=== PATIENT | female | born 1945 | race Caucasian/White ===

== ENCOUNTER 2016-12-24 14:02 | Inpatient (IN) | payer MEDICARE ==
[2016-12-24 14:03] VITALS: BP 157/74; PULSE 92; RESP 18; TEMP 98.8; O2SAT 99
[2016-12-24] MEDS ORDERED: IOHEXOL 350 MG/ML 10 ML VIAL (for RAD DIAG) IVCONTRAST ONE (14:03)
--- NOTE | 2016-12-24 14:09 | PD ---
Physical Exam Time Seen by Provider: 14:08 Narrative 71 y/o female here with fevers, sweats, R leg swelling, decreased urination. She notes that she had a hysterectomy on 11/27/16. Vital signs reviewed. Seen at triage desk. Awaiting bed placement. Data Data Last Documented VS Vital Signs Date Time Temp Pulse Resp B/P (MAP) Pulse Ox O2 Delivery O2 Flow Rate FiO2 12/24/16 14:03 98.8 92 18 157/74 (101) 99 Room Air [facility] Medical Record Reviewed: Yes Supervised Visit with JUNITO: Zackery Barba Dec 24, 2016 14:09
[2016-12-24 15:50] VITALS: RESP 17; O2SAT 99
--- NOTE | 2016-12-24 15:51 | PD ---
HPI Chief Complaint: Fever Time Seen by Provider: 15:31 Travel History International Travel<30 days: No Contact w/Intl Traveler<30days: No Traveled to known affect area: No History of Present Illness HPI The patient is a 71-year-old female who presents to the emergency department for fever. The patient is status post laparoscopic hysterectomy that was performed at [facility] on November 27, 2016. The patient developed a fever last , states it is been as high as 110.2 at home, states it was 100.7 this morning. The patient called her physician last week before leaving [place] who advised her to take Tylenol and/or Motrin for fever. The patient then traveled to [place], however, continues to have fever. She also complains of right lower extremity swelling and edema with pain in the posterior aspect of the calf. The patient also complains of suprapubic discomfort and pain with decreased urination. The patient denies any headache, cough, chest pain, shortness breath, nausea, vomiting, or diarrhea. The patient's symptoms are moderate, there are no current alleviating or exacerbating factors. COUNTS INCLUDE 234 BEDS AT THE [facility] Past Medical History Medical History: Denies Significant Hx Past Surgical History Narrative Surgical Hysterectomy, appendectomy Social History Alcohol Use: No Tobacco Use: No Substance Use: No Allergies-Medications (Allergen,Severity, Reaction): Coded Allergies: celecoxib (Verified Allergy, Severe, Facial swelling/hives, 12/24/16) Per patient directly - has taken NSAIDS previously with no problem meperidine (Verified Allergy, Severe, hives, 12/24/16) latex (Verified Allergy, Unknown, rash, 12/24/16) nickel (Unverified Adverse Reaction, Unknown, "FEVER", 12/24/16) "FEVER" per patient oxycodone (Verified Adverse Reaction, Unknown, PATIENT PREFERENCE - NO OXYCONTIN/OXYCODONE, 12/24/16) PERSONAL PREFERENCE - NOT ALLERGIC Reported Meds & Prescriptions Reported Meds & Active Scripts Active No Active Prescriptions or Reported Medications Review of Systems Except as stated in HPI: all other systems reviewed are Neg General / Constitutional: Positive: Fever HENT: No: Headaches, Lightheadedness Cardiovascular: No: Chest Pain or Discomfort Respiratory: No: Cough, Shortness of Breath Gastrointestinal: Positive: Abdominal Pain, No: Nausea, Vomiting Genitourinary: Positive: Decreased Urinary Output, Pelvic Pain, No: Dysuria, Discharge, Vaginal Bleeding Musculoskeletal: Positive: Edema, Pain Skin: No Rash Physical Exam Narrative GENERAL: Awake, alert, pleasant 71-year-old female who appears her stated age and is in no acute respiratory distress. SKIN: Focused skin assessment warm/dry. HEAD: Atraumatic. Normocephalic. EYES: Pupils equal and round. No scleral icterus. No injection or drainage. ENT: No nasal bleeding or discharge. Mucous membranes pink and moist. No erythema or exudate noted. NECK: Trachea midline. No JVD. CARDIOVASCULAR: Regular rate and rhythm. No murmur appreciated. RESPIRATORY: No accessory muscle use. Clear to auscultation. Breath sounds equal bilaterally. GASTROINTESTINAL: Abdomen soft, mild suprapubic tenderness. Small laparoscopic scars without any visible dehiscence or drainage. Pelvic: The exam was performed in the presence of a female nurse. External examination reveals no rashes or lesions. Speculum examination reveals a vaginal vault, no cervix identified. No visible drainage or obvious dehiscence. MUSCULOSKELETAL: Right lower extremity does appear larger than the left lower extremity upon visual examination. Mild tenderness of the posterior aspect of the right calf. NEUROLOGICAL: Awake and alert. No obvious cranial nerve deficits. Motor grossly within normal limits. Normal speech. PSYCHIATRIC: Appropriate mood and affect; insight and judgment normal. Data Data Last Documented VS Vital Signs Date Time Temp Pulse Resp B/P (MAP) Pulse Ox O2 Delivery O2 Flow Rate FiO2 12/24/16 18:18 100.2 96 17 156/75 (102) 99 Room Air Orders Orders Complete Blood Count With Diff (12/24/16 15:39) Comprehensive Metabolic Panel (12/24/16 15:39) Lactic Acid Sepsis Protocol (12/24/16 15:39) Urinalysis - C+S If Indicated (12/24/16 15:39) Influenzae A/B Antigen (12/24/16 15:39) Blood Culture (12/24/16 15:39) Chest, Single Ap (12/24/16 15:39) Blood Glucose (12/24/16 15:39) Ecg Monitoring (12/24/16 15:39) Iv Access Insert/Monitor (12/24/16 15:39) Oximetry (12/24/16 15:39) Oxygen Administration (12/24/16 15:39) Us Leg Venous Doppler (12/24/16 ) Ct Abd/Pel W Iv Contrast(Rout) (12/24/16 ) Urine Culture (12/24/16 16:00) Ciprofloxacin 400 Mg Premix (Cipro 400 M (12/24/16 17:00) Iohexol 350 Inj (Omnipaque 350 Inj) (12/24/16 14:03) Acetaminophen (Tylenol) (12/24/16 18:30) Admit Order (Ed Use Only) (12/24/16 18:28) Labs Laboratory Tests Test 12/24/16 16:00 White Blood Count 15.8 TH/MM3 Red Blood Count 3.79 MIL/MM3 Hemoglobin 10.6 GM/DL Hematocrit 32.9 % Mean Corpuscular Volume 86.8 FL Mean Corpuscular Hemoglobin 27.9 PG Mean Corpuscular Hemoglobin Concent 32.1 % Red Cell Distribution Width 13.1 % Platelet Count 342 TH/MM3 Mean Platelet Volume 8.0 FL Neutrophils (%) (Auto) 75.6 % Lymphocytes (%) (Auto) 11.7 % Monocytes (%) (Auto) 10.8 % Eosinophils (%) (Auto) 1.3 % Basophils (%) (Auto) 0.6 % Neutrophils # (Auto) 11.9 TH/MM3 Lymphocytes # (Auto) 1.9 TH/MM3 Monocytes # (Auto) 1.7 TH/MM3 Eosinophils # (Auto) 0.2 TH/MM3 Basophils # (Auto) 0.1 TH/MM3 CBC Comment DIFF FINAL Differential Comment Urine Color YELLOW Urine Turbidity CLEAR Urine pH 5.5 Urine Specific [place] 1.022 Urine Protein 30 mg/dL Urine Glucose (UA) NEG mg/dL Urine Ketones NEG mg/dL Urine Occult Blood SMALL Urine Nitrite NEG Urine Bilirubin NEG Urine Urobilinogen LESS THAN 2.0 MG/DL Urine Leukocyte Esterase MOD Urine RBC 4 /hpf Urine WBC 14 /hpf Urine Squamous Epithelial Cells 1 /hpf Urine Bacteria OCC /hpf Urine Mucus FEW /lpf Microscopic Urinalysis Comment CATH-CULTURE IND Blood Urea Nitrogen 11 MG/DL Creatinine 0.66 MG/DL Random Glucose 106 MG/DL Total Protein 8.0 GM/DL Albumin 3.3 GM/DL Calcium Level 9.5 MG/DL Alkaline Phosphatase 127 U/L Aspartate Amino Transf (AST/SGOT) 55 U/L Alanine Aminotransferase (ALT/SGPT) 72 U/L Total Bilirubin 0.8 MG/DL Sodium Level 139 MEQ/L Potassium Level 3.5 MEQ/L Chloride Level 105 MEQ/L Carbon Dioxide Level 27.8 MEQ/L Anion Gap 6 MEQ/L Estimat Glomerular Filtration Rate 89 ML/MIN Lactic Acid Level 1.1 mmol/L [facility] Medical Decision Making Medical Screen Exam Complete: Yes Emergency Medical Condition: Yes Medical Record Reviewed: Yes Interpretation(s) Last Impressions Chest X-Ray 12/24/16 1539 Signed Impressions: Service Date/Time: Saturday, December 24, 2016 15:36 - CONCLUSION: No acute disease. Carson Elliott MD FACR Lower Extremity Ultrasound 12/24/16 0000 Signed Impressions: Service Date/Time: Saturday, December 24, 2016 15:54 - CONCLUSION: 1. No sonographic evidence for right lower extremity DVT. 2. Right inguinal adenopathy, likely reactive. Maninder Barrios MD Laboratory Tests Test 12/24/16 16:00 White Blood Count 15.8 TH/MM3 Red Blood Count 3.79 MIL/MM3 Hemoglobin 10.6 GM/DL Hematocrit 32.9 % Mean Corpuscular Volume 86.8 FL Mean Corpuscular Hemoglobin 27.9 PG Mean Corpuscular Hemoglobin Concent 32.1 % Red Cell Distribution Width 13.1 % Platelet Count 342 TH/MM3 Mean Platelet Volume 8.0 FL Neutrophils (%) (Auto) 75.6 % Lymphocytes (%) (Auto) 11.7 % Monocytes (%) (Auto) 10.8 % Eosinophils (%) (Auto) 1.3 % Basophils (%) (Auto) 0.6 % Neutrophils # (Auto) 11.9 TH/MM3 Lymphocytes # (Auto) 1.9 TH/MM3 Monocytes # (Auto) 1.7 TH/MM3 Eosinophils # (Auto) 0.2 TH/MM3 Basophils # (Auto) 0.1 TH/MM3 CBC Comment DIFF FINAL Differential Comment Urine Color YELLOW Urine Turbidity CLEAR Urine pH 5.5 Urine Specific [place] 1.022 Urine Protein 30 mg/dL Urine Glucose (UA) NEG mg/dL Urine Ketones NEG mg/dL Urine Occult Blood SMALL Urine Nitrite NEG Urine Bilirubin NEG Urine Urobilinogen LESS THAN 2.0 MG/DL Urine Leukocyte Esterase MOD Urine RBC 4 /hpf Urine WBC 14 /hpf Urine Squamous Epithelial Cells 1 /hpf Urine Bacteria OCC /hpf Urine Mucus FEW /lpf Microscopic Urinalysis Comment CATH-CULTURE IND Blood Urea Nitrogen 11 MG/DL Creatinine 0.66 MG/DL Random Glucose 106 MG/DL Total Protein 8.0 GM/DL Albumin 3.3 GM/DL Calcium Level 9.5 MG/DL Alkaline Phosphatase 127 U/L Aspartate Amino Transf (AST/SGOT) 55 U/L Alanine Aminotransferase (ALT/SGPT) 72 U/L Total Bilirubin 0.8 MG/DL Sodium Level 139 MEQ/L Potassium Level 3.5 MEQ/L Chloride Level 105 MEQ/L Carbon Dioxide Level 27.8 MEQ/L Anion Gap 6 MEQ/L Estimat Glomerular Filtration Rate 89 ML/MIN Lactic Acid Level 1.1 mmol/L Date/Time Source Procedure Growth Status 12/24/16 16:01 Blood Peripheral Aerobic Blood Culture Pending Received 12/24/16 16:01 Blood Peripheral Anaerobic Blood Culture Pending Received 12/24/16 15:50 Blood Peripheral Aerobic Blood Culture Pending Received 12/24/16 15:50 Blood Peripheral Anaerobic Blood Culture Pending Received 12/24/16 16:00 Nasal Aspirate Influenza Types A,B Antigen (BRUEC) - Final NEGATIVE FOR FLU A AND B ANTIGEN.... Complete 12/24/16 16:00 Urine Catheterized Urine Urine Culture Pending Received Differential Diagnosis Differential diagnosis includes postoperative abscess, DVT, UTI, surgical dehiscence, pneumonia, atelectasis, dehydration, influenza, viral syndrome. Narrative Course IV was established, labs are drawn and sent, and the patient was placed on cardiac telemetry monitoring and continuous pulse oximetry monitoring. A pelvic exam was performed in the presence of a female nurse to evaluate for possible surgical dehiscence. UA was sent to lab. Ultrasound of the right lower extremity was ordered to evaluate for possible DVT. CT of the abdomen and pelvis with IV contrast was ordered to evaluate for postoperative abscess. Chest x-ray was obtained. Chest x-ray was negative. Vaginal examination is unremarkable. The patient did have a UA with WBCs, was administered Cipro 400 mg intravenously. The patient was signed out to the oncoming physician with CT of the abdomen and pelvis pending for possible postoperative abscess. Sepsis Criteria SIRS Criteria (2 or more): Heart rate over 90, WBC > 56733, < 4000 or > 10% bands Sepsis Criteria (SIRS+source): Infect source susp/known Criteria Outcome: Meets sepsis criteria Diagnosis Primary Impression: UTI (urinary tract infection) Qualified Codes: N30.01 - Acute cystitis with hematuria Additional Impressions: Pelvic pain in female Postoperative wound abscess Qualified Codes: T81.4XXA - Infection following a procedure, initial encounter Sepsis Qualified Codes: A41.9 - Sepsis, unspecified organism Scripts No Active Prescriptions or Reported Meds Condition: Blaise Albright MD Dec 24, 2016 15:51
--- NOTE | 2016-12-24 16:11 | RADRPT ---
EXAM DATE/TIME: 12/24/2016 15:36 [facility] COMPARISON: No previous studies available for comparison. INDICATIONS : Fever since 11-27-16 MEDICAL HISTORY : None. SURGICAL HISTORY : Hysterectomy. D&C ENCOUNTER: Initial ACUITY: 3 weeks PAIN SCORE: 0/10 LOCATION: Bilateral chest FINDINGS: A single view of the chest demonstrates the lungs to be symmetrically aerated without evidence of mas s, infiltrate or effusion. The cardiomediastinal contours are unremarkable. Osseous structures are intact. CONCLUSION: No acute disease. Carson Elliott MD FACR on December 24, 2016 at 16:09 Board Certified Radiologist. This report was verified electronically.
[2016-12-24 16:23] VITALS: BP 171/82; PULSE 88; RESP 16; TEMP 98.6; O2SAT 99
[2016-12-24 16:27] LABS: BACTERIA, URINE OCC /hpf; BLOOD, URINE SMALL (NEG); GLUCOSE,URINE NEG (NEG); KETONE, URINE NEG (NEG); MUCUS URINE FEW /lpf (OCC); NITRITE,URINE NEG (NEG); PH, URINE 5.5 (5.0-8.5); SQUAMOUS EPITHELIAL CELL URINE 1 /hpf (0-5); URINE COLOR YELLOW (YELLW/STRAW)
--- NOTE | 2016-12-24 16:37 | RADRPT ---
EXAM DATE/TIME: 12/24/2016 15:54 [facility] COMPARISON: No previous studies available for comparison. INDICATIONS : Right leg swelling. MEDICAL HISTORY : None. Right leg swelling. SURGICAL HISTORY : Hysterectomy. Appendectomy. ENCOUNTER: Initial ACUITY: 1 day PAIN SCORE: 0/10 LOCATION: Right leg. TECHNIQUE: Venous ultrasound of the leg was performed from the inguinal ligament to the proximal calf. Real-cole e, color Doppler and spectral tracing, compression and augmentation techniques were used. FINDINGS: There is normal compressibility of the deep venous system from the inguinal region to the proximal ca lf. No echogenic clot is seen in the lumen of the common femoral, femoral, popliteal, and posterior tibial veins. There is a normal response of the venous system to proximal and distal augmentation an d respiration. Incidental note is made of multiple enlarged right inguinal lymph nodes which demonstrate normal cent ral fatty hilum. Largest measure 3.4 x 2.1 x 1.3 cm. CONCLUSION: 1. No sonographic evidence for right lower extremity DVT. 2. Right inguinal adenopathy, likely reactive. Maninder Barrios MD on December 24, 2016 at 16:34 Board Certified Radiologist. This report was verified electronically.
[2016-12-24 16:40] LABS: AUTOMATED NEUTROPHIL # 11.9 TH/MM3 (1.8-7.7); BASOPHIL # 0.1 TH/MM3 (0-0.2); BASOPHIL % 0.6 % (0.0-2.0); EOSINOPHIL # 0.2 TH/MM3 (0-0.4); EOSINOPHIL % 1.3 % (0.0-4.0); HEMATOCRIT 32.9 % (35.0-46.0); HEMO FLAGS DIFF FINAL; LYMPH % 11.7 % (9.0-44.0); LYMPHOCYTE # 1.9 TH/MM3 (1.0-4.8); MEAN CELL VOLUME 86.8 FL (80.0-100.0); MEAN CORPUSCULAR HEMOGLOBIN 27.9 PG (27.0-34.0); MEAN CORPUSCULAR HGB CONC 32.1 % (32.0-36.0); MONO % 10.8 % (0.0-8.0); NEUT % 75.6 % (16.0-70.0); PLATELET COUNT 342 TH/MM3 (150-450); RED BLOOD COUNT 3.79 MIL/MM3 (4.00-5.30); RED CELL DISTRIBUTION WIDTH 13.1 % (11.6-17.2); WHITE BLOOD COUNT 15.8 TH/MM3 (4.0-11.0)
[2016-12-24 16:44] LABS: COMMENT (UR) CATH-CULTURE IND; CULTURE IF INDICATED CATH CULTURE IND
[2016-12-24 16:46] LABS: ANION GAP 6 MEQ/L (5-15); AST (GOT) 55 U/L (15-37); BICARBONATE 27.8 MEQ/L (21.0-32.0); BLOOD UREA NITROGEN 11 MG/DL (7-18); CHLORIDE 105 MEQ/L (98-107); GLOMERULAR FILTRATION RATE 89 ML/MIN (>89); POTASSIUM 3.5 MEQ/L (3.5-5.1); SODIUM (NA) 139 MEQ/L (136-145)
[2016-12-24 16:47] LABS: ALT (GPT) 72 U/L (10-53)
[2016-12-24 16:49] LABS: ALKALINE PHOSPHATASE 127 U/L (45-117); TOTAL BILIRUBIN ADULT 0.8 MG/DL (0.2-1.0)
[2016-12-24] MEDS ORDERED: CIPROFLOXACIN 400 MG PREMIX 200 ML IV ONE (17:00)
--- NOTE | 2016-12-24 18:15 | RADRPT ---
EXAM DATE/TIME: 12/24/2016 17:41 [facility] COMPARISON: No previous studies available for comparison. INDICATIONS : Low abdomen pain with fever. S/P hysterectomy 4 weeks ago. IV CONTRAST: 95 cc Omnipaque 350 (iohexol) IV ORAL CONTRAST: No oral contrast ingested. RADIATION DOSE: 19.53 CTDIvol (mGy) ; Patient body habitus MEDICAL HISTORY : None SURGICAL HISTORY : Hysterectomy. ENCOUNTER: Initial ACUITY: 2 weeks PAIN SCALE: 7/10 LOCATION: Right lower pelvis TECHNIQUE: Volumetric scanning of the abdomen and pelvis was performed. Using automated exposure control and ad justment of the mA and/or kV according to patient size, radiation dose was kept as low as reasonably achievable to obtain optimal diagnostic quality images. DICOM format image data is available electro nically for review and comparison. FINDINGS: The lung base is are clear. Small hiatal hernia is evident with some bowel wall thickening. The liver, spleen, pancreas and gallbladder are unremarkable. The adrenal glands appear normal. The right kidney is unremarkable. Renal cysts as seen on the left kidney. There are inflammatory changes in the right lower quadrant involving the ileum. There is an enlarged fluid collection in the obturator region measuring 6 cm. There is bladder wall thickening along the right lateral side of the bladder. There is no free air. Review of bone windows reveals only degenerative changes. CONCLUSION: 1. Inflammatory changes right lower quadrant expected location of the appendix. These inflammatory c hanges involve the terminal ileum as well. 2. Rasonably well-defined fluid collection is seen in the right obturator region does show some perip heral wall enhancement. 3. Jen is bladder wall thickening right lateral bladder wall wall. Carson Elliott MD FACR on December 24, 2016 at 17:54 Board Certified Radiologist. This report was verified electronically.
[2016-12-24 18:18] VITALS: BP 156/75; PULSE 96; RESP 17; TEMP 100.2; O2SAT 99
[2016-12-24] MEDS ORDERED: ACETAMINOPHEN 325 MG TAB PO ONE (18:30)
--- NOTE | 2016-12-24 18:32 | PD ---
Data Data Last Documented VS Vital Signs Date Time Temp Pulse Resp B/P (MAP) Pulse Ox O2 Delivery O2 Flow Rate FiO2 12/24/16 18:18 100.2 96 17 156/75 (102) 99 Room Air Orders Orders Complete Blood Count With Diff (12/24/16 15:39) Comprehensive Metabolic Panel (12/24/16 15:39) Lactic Acid Sepsis Protocol (12/24/16 15:39) Urinalysis - C+S If Indicated (12/24/16 15:39) Influenzae A/B Antigen (12/24/16 15:39) Blood Culture (12/24/16 15:39) Chest, Single Ap (12/24/16 15:39) Blood Glucose (12/24/16 15:39) Ecg Monitoring (12/24/16 15:39) Iv Access Insert/Monitor (12/24/16 15:39) Oximetry (12/24/16 15:39) Oxygen Administration (12/24/16 15:39) Us Leg Venous Doppler (12/24/16 ) Ct Abd/Pel W Iv Contrast(Rout) (12/24/16 ) Urine Culture (12/24/16 16:00) Ciprofloxacin 400 Mg Premix (Cipro 400 M (12/24/16 17:00) Iohexol 350 Inj (Omnipaque 350 Inj) (12/24/16 14:03) Acetaminophen (Tylenol) (12/24/16 18:30) Admit Order (Ed Use Only) (12/24/16 18:28) Labs Laboratory Tests Test 12/24/16 16:00 White Blood Count 15.8 TH/MM3 Red Blood Count 3.79 MIL/MM3 Hemoglobin 10.6 GM/DL Hematocrit 32.9 % Mean Corpuscular Volume 86.8 FL Mean Corpuscular Hemoglobin 27.9 PG Mean Corpuscular Hemoglobin Concent 32.1 % Red Cell Distribution Width 13.1 % Platelet Count 342 TH/MM3 Mean Platelet Volume 8.0 FL Neutrophils (%) (Auto) 75.6 % Lymphocytes (%) (Auto) 11.7 % Monocytes (%) (Auto) 10.8 % Eosinophils (%) (Auto) 1.3 % Basophils (%) (Auto) 0.6 % Neutrophils # (Auto) 11.9 TH/MM3 Lymphocytes # (Auto) 1.9 TH/MM3 Monocytes # (Auto) 1.7 TH/MM3 Eosinophils # (Auto) 0.2 TH/MM3 Basophils # (Auto) 0.1 TH/MM3 CBC Comment DIFF FINAL Differential Comment Urine Color YELLOW Urine Turbidity CLEAR Urine pH 5.5 Urine Specific [place] 1.022 Urine Protein 30 mg/dL Urine Glucose (UA) NEG mg/dL Urine Ketones NEG mg/dL Urine Occult Blood SMALL Urine Nitrite NEG Urine Bilirubin NEG Urine Urobilinogen LESS THAN 2.0 MG/DL Urine Leukocyte Esterase MOD Urine RBC 4 /hpf Urine WBC 14 /hpf Urine Squamous Epithelial Cells 1 /hpf Urine Bacteria OCC /hpf Urine Mucus FEW /lpf Microscopic Urinalysis Comment CATH-CULTURE IND Blood Urea Nitrogen 11 MG/DL Creatinine 0.66 MG/DL Random Glucose 106 MG/DL Total Protein 8.0 GM/DL Albumin 3.3 GM/DL Calcium Level 9.5 MG/DL Alkaline Phosphatase 127 U/L Aspartate Amino Transf (AST/SGOT) 55 U/L Alanine Aminotransferase (ALT/SGPT) 72 U/L Total Bilirubin 0.8 MG/DL Sodium Level 139 MEQ/L Potassium Level 3.5 MEQ/L Chloride Level 105 MEQ/L Carbon Dioxide Level 27.8 MEQ/L Anion Gap 6 MEQ/L Estimat Glomerular Filtration Rate 89 ML/MIN Lactic Acid Level 1.1 mmol/L MDM Supervised Visit with JUNITO: No Narrative Course The patient was initially evaluated by the previous provider and signed out to me at the beginning of my shift pending CT abdomen pelvis and disposition. See his note for further details. Briefly this is a 71-year-old female who had a hysterectomy 2 weeks ago at [facility], here for evaluation of abdominal pain and fever. For the last 2 weeks patient has been experiencing right lower abdominal pain as well as fevers. History of appendectomy. CBC is remarkable for WBC 15.8 with 75.6% neutrophils. UA shows small occult blood, moderate leukocyte esterase, 14 wbc's, occasional bacteria. The patient was given a dose of IV Cipro by the previous provider. CT abdomen pelvis: CONCLUSION: 1. Inflammatory changes right lower quadrant expected location of the appendix. These inflammatory changes involve the terminal ileum as well. 2. Rasonably well-defined fluid collection is seen in the right obturator region does show some peripheral wall enhancement. 3. Jen is bladder wall thickening right lateral bladder wall wall. On exam the patient does have right lower quadrant and suprapubic tenderness. There are no peritoneal signs. She was made aware of all findings. Case discussed with OB hospitalist Dr. Patricio who will admit the patient to his service. He will determine which IV antibiotics he will administer. Diagnosis Primary Impression: Sepsis Qualified Codes: A41.9 - Sepsis, unspecified organism Additional Impression: Postoperative wound abscess Qualified Codes: T81.4XXA - Infection following a procedure, initial encounter Admitting Information Admitting Physician Requests: Admit Scripts No Active Prescriptions or Reported Meds Condition: Matt Murillo MD Dec 24, 2016 18:32
[2016-12-24] MEDS ORDERED: SODIUM CHLOR 0.9% 1000 ML INJ 1,000 ML IV ONE (19:15)
[2016-12-24] MEDS ORDERED: ALUMINUM/MAGNESIUM/SIMETH 30 ML CUP PO PRN (19:45)
[2016-12-24] MEDS ORDERED: SODIUM CHLORIDE 0.9% FLUSH 5 ML FLUSH IV FLUSH PRN (19:45)
[2016-12-24] MEDS ORDERED: ACETAMINOPHEN/HYDROcodone 325 MG/5 MG TAB PO PRN (19:45)
[2016-12-24] MEDS ORDERED: MORPHINE SULFATE 4 MG/ML INJ IV PUSH PRN (19:45)
[2016-12-24] MEDS ORDERED: ONDANSETRON HCL 4 MG/2 ML VIAL IV PUSH PRN (19:45)
[2016-12-24] MEDS ORDERED: ACETAMINOPHEN 325 MG TAB PO PRN (19:45)
[2016-12-24] MEDS ORDERED: AMPICILLIN-SULBACTAM INJ 3 GM VIAL IM SCH (20:00)
[2016-12-24] MEDS ORDERED: ZOLPIDEM TARTRATE 10 MG TAB PO PRN (20:00)
[2016-12-24] MEDS ORDERED: MAGNESIUM HYDROXIDE SUSP 30 ML CUP PO PRN (20:00)
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
[2016-12-24] MEDS: SODIUM CHLORIDE 0.9% FLUSH 5 ML FLUSH IV FLUSH SCH (21:00)
[2016-12-24 21:15] VITALS: BP 136/69; PULSE 91; RESP 16; TEMP 97.9; O2SAT 94
[2016-12-24] MEDS: metroNIDAZOLE 500 MG INJ 100 ML IV SCH (21:34)
[2016-12-24] MEDS: ENOXAPARIN SODIUM 40 MG/0.4 ML SYRINGE SQ SCH (21:36)
[2016-12-24] MEDS: SODIUM CHLOR 0.45% 1000 ML INJ 1,000 ML IV SCH (21:38)
[2016-12-24] MEDS: AMPICILLIN-SULBACTAM INJ 3 GM in SODIUM CHLORIDE 0.9% INJ 100 ML IV SCH (22:48)
[2016-12-25] VITALS (7 sets, daily range): BP systolic 112–132; BP diastolic 52–70; PULSE 75–90; RESP 16–20; TEMP 97.6–100; O2SAT 94–98
[2016-12-25] MEDS: IBUPROFEN 600 MG TAB PO PRN ×2 (01:46→14:20)
[2016-12-25] MEDS: AMPICILLIN-SULBACTAM INJ 3 GM in SODIUM CHLORIDE 0.9% INJ 100 ML IV SCH ×4 (03:39→23:31)
[2016-12-25] MEDS: metroNIDAZOLE 500 MG INJ 100 ML IV SCH ×3 (04:12→20:28)
[2016-12-25 07:40] LABS: AUTOMATED NEUTROPHIL # 9.1 TH/MM3 (1.8-7.7); BASOPHIL % 0.3 % (0.0-2.0); EOSINOPHIL # 0.2 TH/MM3 (0-0.4); EOSINOPHIL % 1.7 % (0.0-4.0); HEMATOCRIT 27.4 % (35.0-46.0); HEMO FLAGS DIFF FINAL; LYMPH % 9.3 % (9.0-44.0); LYMPHOCYTE # 1.2 TH/MM3 (1.0-4.8); MEAN CELL VOLUME 86.8 FL (80.0-100.0); MEAN CORPUSCULAR HEMOGLOBIN 28.1 PG (27.0-34.0); MEAN CORPUSCULAR HGB CONC 32.3 % (32.0-36.0); MONO % 15.2 % (0.0-8.0); NEUT % 73.5 % (16.0-70.0); PLATELET COUNT 262 TH/MM3 (150-450); RED BLOOD COUNT 3.16 MIL/MM3 (4.00-5.30); RED CELL DISTRIBUTION WIDTH 13.3 % (11.6-17.2); WHITE BLOOD COUNT 12.4 TH/MM3 (4.0-11.0)
[2016-12-25 08:14] LABS: FREE T4 1.19 NG/DL (0.76-1.46)
[2016-12-25] MEDS: SODIUM CHLORIDE 0.9% FLUSH 5 ML FLUSH IV FLUSH SCH ×2 (09:00→21:00)
--- NOTE | 2016-12-25 09:00 | HHI.PR ---
Subjective Remarks HD 2 AFVSS Tmax -100.2 on Unasyn & flagyl doing well still having pain, and nite sweats exam unchanged Objective Vital Signs Date Time Temp Pulse Resp B/P (MAP) Pulse Ox O2 Delivery O2 Flow Rate FiO2 12/25/16 08:45 97.9 75 17 112/53 (72) 96 12/25/16 05:12 97.7 86 16 132/70 (90) 94 12/25/16 01:45 100.0 12/25/16 00:47 97.7 90 16 128/66 (86) 94 12/24/16 21:15 97.9 91 16 136/69 (91) 94 12/24/16 20:37 12/24/16 18:18 100.2 96 17 156/75 (102) 99 Room Air 12/24/16 16:23 98.6 88 16 171/82 (111) 99 Room Air 12/24/16 15:50 99 Room Air 12/24/16 15:50 17 99 Room Air 12/24/16 15:47 17 89 99 Room Air 12/24/16 14:03 98.8 92 18 157/74 (101) 99 Room Air I/O 12/24/16 12/24/16 12/24/16 12/25/16 12/25/16 12/25/16 07:00 15:00 23:00 07:00 15:00 23:00 Intake Total 1300 ml 900 ml Balance 1300 ml 900 ml Intake IV Total 1300 ml 900 ml Result Diagram: 12/25/16 0700 12/24/16 1600 Assessment and Plan Assessment and Plan post hyst pelvic abscess on IVATB , needs to be AFeb 24 hrs minimal before dicharge Donte Patricio II, MD Dec 25, 2016 09:00
[2016-12-25] MEDS: KETOROLAC TROMETHAMINE 30 MG/ML (IVP) VIAL IV PUSH PRN ×3 (11:52→23:26)
[2016-12-25] MEDS ORDERED: IBUPROFEN 600 MG TAB PO PRN (16:15)
[2016-12-25] MEDS: SODIUM CHLOR 0.45% 1000 ML INJ 1,000 ML IV SCH (19:40)
[2016-12-25] MEDS: ENOXAPARIN SODIUM 40 MG/0.4 ML SYRINGE SQ SCH (20:28)
[2016-12-26 01:22] VITALS: BP 129/64; PULSE 83; RESP 19; TEMP 98.2; O2SAT 100
[2016-12-26] MEDS: metroNIDAZOLE 500 MG INJ 100 ML IV SCH ×3 (04:19→20:17)
[2016-12-26 06:23] VITALS: BP 143/62; PULSE 78; RESP 17; TEMP 98.4; O2SAT 97
[2016-12-26] MEDS: KETOROLAC TROMETHAMINE 30 MG/ML (IVP) VIAL IV PUSH PRN ×3 (06:38→20:17)
[2016-12-26] MEDS: AMPICILLIN-SULBACTAM INJ 3 GM in SODIUM CHLORIDE 0.9% INJ 100 ML IV SCH ×4 (06:40→23:02)
[2016-12-26] MEDS: SODIUM CHLORIDE 0.9% FLUSH 5 ML FLUSH IV FLUSH SCH ×2 (08:25→20:18)
[2016-12-26] MEDS: SODIUM CHLOR 0.45% 1000 ML INJ 1,000 ML IV SCH ×3 (08:25→23:01)
[2016-12-26 10:12] LABS: AUTOMATED NEUTROPHIL # 6.8 TH/MM3 (1.8-7.7); BASOPHIL % 0.5 % (0.0-2.0); EOSINOPHIL # 0.4 TH/MM3 (0-0.4); EOSINOPHIL % 4.9 % (0.0-4.0); HEMATOCRIT 27.5 % (35.0-46.0); HEMO FLAGS DIFF FINAL; LYMPH % 9.7 % (9.0-44.0); LYMPHOCYTE # 0.9 TH/MM3 (1.0-4.8); MEAN CELL VOLUME 87.3 FL (80.0-100.0); MEAN CORPUSCULAR HEMOGLOBIN 28.4 PG (27.0-34.0); MEAN CORPUSCULAR HGB CONC 32.6 % (32.0-36.0); MONO % 11.1 % (0.0-8.0); NEUT % 73.8 % (16.0-70.0); PLATELET COUNT 281 TH/MM3 (150-450); RED BLOOD COUNT 3.15 MIL/MM3 (4.00-5.30); RED CELL DISTRIBUTION WIDTH 13.7 % (11.6-17.2); WHITE BLOOD COUNT 9.2 TH/MM3 (4.0-11.0)
[2016-12-26 12:00] VITALS: BP 142/70; PULSE 81; RESP 16; TEMP 97.4; O2SAT 99
--- NOTE | 2016-12-26 12:35 | HHI.PR ---
Subjective Remarks Pt seen and examined this morning. States her pain is overall improved, but still feels it. Denies any fever/chills overnight. No nausea/vomiting. No chest pain, SOB, leg pain. Objective Vital Signs Date Time Temp Pulse Resp B/P (MAP) Pulse Ox O2 Delivery O2 Flow Rate FiO2 12/26/16 06:23 98.4 78 17 143/62 (89) 97 12/26/16 01:22 98.2 83 19 129/64 (85) 100 12/25/16 20:00 97.7 76 20 113/58 (76) 98 12/25/16 16:22 97.6 87 17 120/64 (82) 96 I/O 12/25/16 12/25/16 12/25/16 12/26/16 12/26/16 12/26/16 07:00 15:00 23:00 07:00 15:00 23:00 Intake Total 900 ml 240 ml Balance 900 ml 240 ml Intake Oral 240 ml IV Total 900 ml # Voids 3 Result Diagram: 12/26/16 0950 12/24/16 1600 Objective Remarks GENERAL: NAD CARDIOVASCULAR: Regular rate and rhythm. RESPIRATORY: No accessory muscle use. Clear to auscultation. Breath sounds equal bilaterally. GASTROINTESTINAL: Abdomen soft, tender to palpation in lower abdominal area. BS+ MUSCULOSKELETAL: Extremities without clubbing, cyanosis, or edema. No obvious deformities. PSYCHIATRIC: Appropriate mood and affect; insight and judgment normal. Assessment and Plan Assessment and Plan post hysterectomy pelvic abscess on IVATB -Pt doing well on antibiotics -Pt afebrile for >24h -If pt remains afebrile tomorrow morning >48h, consider discharge Otoniel Lawrence MD, R2 Dec 26, 2016 12:35
[2016-12-26] MEDS ORDERED: PILL SPLITTER OTHER PRN (14:00)
[2016-12-26] MEDS: LORATADINE 10 MG TAB PO SCH (15:34)
[2016-12-26 16:00] VITALS: BP 137/72; PULSE 85; RESP 18; TEMP 99.7; O2SAT 99
[2016-12-26] MEDS: LACTOBACILLUS ACIDOPHILUS TAB PO SCH (17:41)
[2016-12-26 20:00] VITALS: BP 126/58; PULSE 93; RESP 18; TEMP 99.9; O2SAT 95
[2016-12-26] MEDS: ENOXAPARIN SODIUM 40 MG/0.4 ML SYRINGE SQ SCH (20:18)
[2016-12-27] VITALS: BP 133/62; PULSE 93; RESP 20; TEMP 99.9; O2SAT 97
[2016-12-27 01:13] VITALS: TEMP 98.9
[2016-12-27] MEDS: SODIUM CHLOR 0.45% 1000 ML INJ 1,000 ML IV SCH ×2 (03:45→11:45)
[2016-12-27] MEDS: metroNIDAZOLE 500 MG INJ 100 ML IV SCH ×2 (03:46→12:00)
[2016-12-27] MEDS: LORATADINE 10 MG TAB PO SCH ×2 (03:46→14:05)
[2016-12-27 04:00] VITALS: BP 115/57; PULSE 89; RESP 20; TEMP 98.8; O2SAT 96
[2016-12-27] MEDS: AMPICILLIN-SULBACTAM INJ 3 GM in SODIUM CHLORIDE 0.9% INJ 100 ML IV SCH ×3 (05:28→15:45)
[2016-12-27 07:48] LABS: AUTOMATED NEUTROPHIL # 7.2 TH/MM3 (1.8-7.7); BASOPHIL # 0.1 TH/MM3 (0-0.2); BASOPHIL % 0.7 % (0.0-2.0); EOSINOPHIL # 0.3 TH/MM3 (0-0.4); EOSINOPHIL % 3.4 % (0.0-4.0); LYMPH % 13.5 % (9.0-44.0); LYMPHOCYTE # 1.4 TH/MM3 (1.0-4.8); MEAN CELL VOLUME 86.9 FL (80.0-100.0); MEAN CORPUSCULAR HEMOGLOBIN 28.1 PG (27.0-34.0); MEAN CORPUSCULAR HGB CONC 32.4 % (32.0-36.0); MONO % 10.4 % (0.0-8.0); PLATELET COUNT 336 TH/MM3 (150-450); RED BLOOD COUNT 3.45 MIL/MM3 (4.00-5.30); RED CELL DISTRIBUTION WIDTH 13.8 % (11.6-17.2)
[2016-12-27 07:54] LABS: HEMO FLAGS AUTO DIFF
[2016-12-27 08:00] VITALS: BP 126/71; PULSE 82; RESP 18; TEMP 97.3; O2SAT 98
[2016-12-27 08:40] LABS: PLATELET ESTIMATE SMEAR NORMAL (NORMAL); PLATELET MORPHOLOGY NORMAL (NORMAL); SCAN/DIFF AUTO DIFF CONFIRMED
--- NOTE | 2016-12-27 08:49 | HHI.PR ---
Subjective . Hospital day 3 afebrile for 48 hours, on broad-spectrum IV antibiotics S--patient's to states she is improved that she had a low-grade fever last night 99.9 but otherwise is been ok , her pain in the right low pelvis is decreased still present but better, and if she is complaining of some midsternal discomfort consistent with reflux /GERD O--abdomen is less tender otherwise exam is unchanged A--post-hysterectomy pelvic abscess that has responded to IV antibiotics she is afebrile greater than 48 hours and has less pain P- recommend the patient be discharged later today after her antibiotic dose at 4:00 discharged on by mouth Rachael will call that in to [facility] in [place] recommend that she also arranged to rather rapidly go back to [place] to follow -up with her [facility] cancer and the benign [facility] [facility] team as they plan for her to get chemotherapy over the next 6 months , they may feel that once that she's there they can potentially drain this abscess or follow the therapy they feel best Donte Patricio II, MD Dec 27, 2016 08:49
[2016-12-27] MEDS: SODIUM CHLORIDE 0.9% FLUSH 5 ML FLUSH IV FLUSH SCH (09:00)
[2016-12-27] MEDS: LACTOBACILLUS ACIDOPHILUS TAB PO SCH ×2 (09:19→14:03)
[2016-12-27] MEDS: KETOROLAC TROMETHAMINE 30 MG/ML (IVP) VIAL IV PUSH PRN (09:20)
[2016-12-27] MEDS ORDERED: METR500T10 PO (11:20)
--- NOTE | 2016-12-27 11:21 | HHI.DCPOC ---
Discharge Care Plan Diagnosis: (1) Postoperative wound abscess (2) UTI (urinary tract infection) Report Symptoms to Your Doctor -Temperature above 100.5 degrees -Redness, of incision or excessive or foul smelling drainage -Unusual pain or calf pain -Increased vaginal bleeding -Painful or difficulty urinating -Feelings of extreme sadness or anxiety after 2 weeks Goals to Promote Your Health * To prevent worsening of your condition and complications * To maintain your health at the optimal level Directions to Meet Your Goals Take your medications as prescribed Follow your dietary instruction Follow activity as directed Ensure plenty of rest for recovery Drink fluids for hydration Keep your appointments as scheduled Take your immunizations and boosters as scheduled If your symptoms worsen call your PCP, if no PCP go to Urgent Care Center or Emergency Room Smoking is Dangerous to Your Health. Avoid second hand smoke Call the 24-hour crisis hotline for domestic abuse at Toni Orozco MD R2 Dec 27, 2016 11:21
[2016-12-27 12:00] VITALS: BP 126/63; PULSE 78; RESP 18; TEMP 96.8; O2SAT 97
--- NOTE | 2016-12-27 15:09 | RADRPT ---
EXAM DATE/TIME: 12/27/2016 14:15 [facility] COMPARISON: US LEG RIGHT VENOUS DOPPLER, December 24, 2016, 15:54. INDICATIONS : Right leg swelling. MEDICAL HISTORY : Glasses. Uterine cancer. SURGICAL HISTORY : Appendectomy. Hysterectomy. ENCOUNTER: Initial ACUITY: 1 week PAIN SCORE: 3/10 LOCATION: Right leg. TECHNIQUE: Venous ultrasound of the leg was performed from the inguinal ligament to the proximal calf. Real-time, color Doppler and spectral tracing, compression and augmentation techniques were us ed. FINDINGS: There is normal compressibility of the deep venous system from the inguinal region to the proximal ca lf. No echogenic clot is seen in the lumen of the common femoral, femoral, popliteal, and posterior tibial veins. There is a normal response of the venous system to proximal and distal augmentation an d respiration. Redemonstration of prominent right inguinal nodes. CONCLUSION: 1. No sonographic evidence for right lower extremity DVT. 2. Redemonstration of right inguinal adenopathy. Maninder Barrios MD on December 27, 2016 at 15:06 Board Certified Radiologist. This report was verified electronically.
--- NOTE | 2016-12-27 15:35 | HHI.PR ---
Addendum to Inpatient Note Addendum Reason: Additional Documentation Additional Information Contacted regarding patient concern about swelling of right leg. Per RN patient had received some maintenance IVF overnight. Exam: R leg with 1-2+ pitting edema compared to left side. Moderate venous varicosities noted. Lungs CTAB. Imaging: Chest X-Ray 12/24/16 1539 Signed Impressions: Service Date/Time: Saturday, December 24, 2016 15:36 - CONCLUSION: No acute disease. Carson Elliott MD FACR Lower Extremity Ultrasound 12/24/16 0000 Signed Impressions: Service Date/Time: Thursday, December 24, 2016 15:54 - CONCLUSION: 1. No sonographic evidence for right lower extremity DVT. 2. Right inguinal adenopathy, likely reactive. Maninder Barrios MD Abdomen/Pelvis CT 12/24/16 0000 Signed Impressions: Service Date/Time: Saturday, December 24, 2016 17:41 - CONCLUSION: 1. Inflammatory changes right lower quadrant expected location of the appendix. These inflammatory changes involve the terminal ileum as well. 2. Rasonably well-defined fluid collection is seen in the right obturator region does show some peripheral wall enhancement. 3. Jen is bladder wall thickening right lateral bladder wall wall. Carson Elliott MD FACR A/P No evidence of DVT on ultrasound Swelling likely secondary to hydration with IVF in setting of existing venous disease plus decreased ambulation while in hospital - No contraindication to discharge - Advise compression stockings if swelling continues (Toni Orozco MD R2) Additional Information Patient seen and evaluated with resident under direct supervision, agree with assessment and plan. (Sukhwinder Huggins MD) Toni Orozco MD R2 Dec 27, 2016 15:35 Sukhwinder Huggins MD Dec 28, 2016 07:37
== END 2016-12-27 18:16 | disposition home or self-care (01) | DRG 863 ==
LOC: NEPD 14:02 → NEDA 18:30 → HOCB 20:29
PROVIDERS: ADMIT Obstetrics & Gynecology Maternal & Fetal Medicine; ATTEND Obstetrics & Gynecology Maternal & Fetal Medicine
DX: T81.4XXA Infection following a procedure, initial encounter (principal); C54.1 Malignant neoplasm of endometrium; N73.9 Female pelvic inflammatory disease, unspecified; K21.9 Gastro-esophageal reflux disease without esophagitis; Y83.6 Removal of other organ (partial) (total) as the cause of abnormal reaction of the patient, or of later complication, without mention of misadventure at the time of the procedure; Z90.710 Acquired absence of both cervix and uterus
CPT/HCPCS: 71010; 74177; 76937; 80053; 81001; 83605; 84439; 84443; 85025; 87040; 87086; 87804; 93971; 96365; J0295; J0744; J1650; J1885; J7030; Q9967